=== PATIENT | male | born 2000 | race Caucasian/White ===

== ENCOUNTER 2019-09-22 19:29 | Emergency (ER) | payer MEDICAID, OTHER ==
[~2019-09-22] VITALS: Ht 182.9 cm; Wt 100.0 kg
[2019-09-22] MEDS ORDERED: ibuprofen tablet 400 MG TABLET PO ONE (20:35)
[2019-09-22] MEDS ORDERED: HYDROcodone/acetaminophen 10/325mg tab PO ONE (20:35)
[2019-09-22 21:03] VITALS: BP 131/68
== END 2019-09-22 21:04 | disposition home or self-care (01) ==
LOC: ER 19:29
DX: S89.92XA Unspecified injury of left lower leg, initial encounter (principal); X58.XXXA Exposure to other specified factors, initial encounter; Y93.89 Activity, other specified; Y92.89 Other specified places as the place of occurrence of the external cause; Y99.8 Other external cause status
CPT/HCPCS: 29505; 73564; 99284